=== PATIENT | female | born 1955 | race Asian ===

== ENCOUNTER 2021-09-25 12:14 | Emergency (ER) | payer MEDICARE ==
[~2021-09-25] VITALS: Ht 162.6 cm; Wt 50.0 kg
[2021-09-25] MEDS ORDERED: NS 1,000 ML IV ONE (14:20)
[2021-09-25] MEDS ORDERED: ONDANSETRON 4MG/2ML VIAL IV ONE (14:20)
[2021-09-25 15:01] LABS: BASO % 0.3 % (0.0-1.0); EOS % 0.3 % (0.0-3.0); HEMOGLOBIN 13.1 g/dl (12.0-15.5); LYMPH # 0.9 10^3/uL (1.5-5.0); LYMPH % 22.4 % (24.0-44.0); MEAN CORPUSCULAR HEMOGLOBIN 29.8 pg (27.0-33.0); MEAN CORPUSCULAR HGB CONC 33.6 g/dl (32.0-36.5); MEAN CORPUSCULAR VOLUME 88.6 fl (80.0-96.0); MONO # 0.4 10^3/uL (0.0-0.8); MONO % 11.2 % (2.0-8.0); NEUTROPHILS # 2.6 10^3/uL (1.5-8.5); NEUTROPHILS % 65.8 % (36.0-66.0); PLATELET COUNT, AUTOMATED 314 10^3/uL (150-450); WHITE BLOOD COUNT 3.9 10^3/uL (4.0-10.0)
[2021-09-25 16:19] LABS: RSV AMPLIFICATION NEGATIVE (NEGATIVE)
[2021-09-25 17:17] LABS: ALT/SGPT 54 IU/L (0-32); BLOOD UREA NITROGEN 18 MG/DL (7-18); CALCIUM LEVEL 9.3 MG/DL (8.8-10.2); CARBON DIOXIDE LEVEL 26 mmol/L (20-29); CHLORIDE LEVEL 98 MEQ/L (98-107); CREATININE FOR GFR 0.56 MG/DL (0.55-1.30); GLOMERULAR FILTRATION RATE > 60.0 (>45); GLUCOSE, FASTING 101 MG/DL (70-100); SODIUM LEVEL 134 MEQ/L (136-145)
[2021-09-25 17:18] LABS: ALBUMIN 3.7 GM/DL (3.2-5.2); BILIRUBIN,DIRECT 0.2 MG/DL (0.0-0.2); BILIRUBIN,TOTAL 0.5 MG/DL (0.2-1.0); LIPASE 149 U/L (73-393); TOTAL PROTEIN 7.3 GM/DL (6.4-8.2)
[2021-09-25 19:42] VITALS: BP 172/79
[2021-09-25] MEDS ORDERED: ACETAMINOPHEN 325 MG TAB PO ONE (19:45)
[2021-09-25] MEDS ORDERED: ZOFR4TAB16 PO (20:52)
== END 2021-09-25 21:40 | disposition home or self-care (01) ==
LOC: EEVIPCON 12:14 → M ED 12:14
DX: U07.1 COVID-19 (principal); R11.2 Nausea with vomiting, unspecified; D32.0 Benign neoplasm of cerebral meninges
CPT/HCPCS: 70450; 71045; 80053; 81001; 82248; 83690; 85025; 87088; 87186; 87631; 96361; 96374; 99284; J2405

== ENCOUNTER → 2022-01-29 | Outpatient (CLI) | payer MEDICARE ==
[~2022-01-29] MED LIST: ZOFR4TAB16 PO
== END ==
LOC: M WHC 14:53
PROVIDERS: ATTEND Nurse Practitioner Family
DX: Z12.31 Encounter for screening mammogram for malignant neoplasm of breast (principal)

== ENCOUNTER → 2022-07-31 | Outpatient (REF) | payer MEDICARE ==
[2022-07-31 17:55] LABS: CHOLESTEROL RISK RATIO 2.97 (<5); HDL CHOLESTEROL 53.8 MG/DL (>40); LDL CHOLESTEROL 80.6 MG/DL (<100)
== END ==
LOC: M LAB REF 16:37
PROVIDERS: ATTEND Nurse Practitioner Family
DX: E78.5 Hyperlipidemia, unspecified (principal)